=== PATIENT | female | born 1960 | race Caucasian/White ===

== ENCOUNTER 2017-02-21 17:01 | Inpatient (IN) | payer OTHER ==
[~2017-02-21] VITALS: Ht 152.4 cm; Wt 78.7 kg
[~2017-02-21 17:01] MED LIST: HYDROCHLOROTHIA25 MG PO; PANTOPRAZOLE SO40 MG PO; PEN-VEE K,VEET500 MG PO; PEPCID20 MG PO; PERCOCET 5/31 TABLET PO; PROMETHAZINE HC25 M1 PO; RANITIDINE HCL300 MG PO
[2017-02-21 17:53] LABS: HEMATOCRIT 46.1 % (36.0-46.0); MCH 31.7 PG (29.0-34.0); MCHC 34.3 G/DL (30.0-36.0); MCV 92.6 FL (83-99); MEAN PLAT.VOLUME 9.4 uM^3 (9.5-12.4); PLATELET COUNT 299 K/uL (156-360); RBC DIS.WIDTH-CV 12.6 % (11.8-14.6); RBC DIS.WIDTH-SD 42.9 % (39-53); RED BLOOD COUNT 4.98 M/uL (3.80-5.20); WHITE BLOOD COUNT 8.9 K/uL (4.1-10.2)
[2017-02-21 18:06] LABS: CHLORIDE 101 mEq/L (99-109); POTASSIUM 3.8 mEq/L (3.7-5.4); SODIUM 139 mEq/L (136-147)
[2017-02-21 18:07] LABS: GLUCOSE 93 mg/dL (70-99)
[2017-02-21 18:09] LABS: ANION GAP 11 MEQ/L (2-14)
[2017-02-21 18:11] LABS: GFR ESTIMATE (CALCULATED) > 59 mL/min/
[2017-02-21 18:18] LABS: TROP-I INTERPRETATION NEGATIVE; TROPONIN-I < 0.01 ng/mL (0.0-0.30); UREA NITROGEN (BUN) 26 mg/dL (9-23)
[2017-02-21] MEDS ORDERED: HYZAAR 50-121 TABLET PO (19:54)
[2017-02-21] MEDS ORDERED: ADVIL,NUPRIN,M200 MG PO (19:54)
[2017-02-21 22:00] VITALS: BP 139/82
[2017-02-21 22:02] LABS: HDL CHOLESTEROL 43 MG/DL (Desirable>=50); NON-HDL CHOLESTEROL 246 mg/dL (Desirable<160); TOTAL CHOLESTEROL 289 mg/dL (Desirable<200); TRIGLYCERIDES 536 MG/DL (Normal: <150)
[2017-02-22] VITALS: BP 141/72
[2017-02-22 03:44] VITALS: BP 101/59
[2017-02-22 07:29] VITALS: BP 113/71
[2017-02-22 08:40] LABS: HEMATOCRIT 41.7 % (36.0-46.0); MCH 31.4 PG (29.0-34.0); MCHC 33.3 G/DL (30.0-36.0); MCV 94.3 FL (83-99); MEAN PLAT.VOLUME 9.7 uM^3 (9.5-12.4); PLATELET COUNT 256 K/uL (156-360); RBC DIS.WIDTH-CV 12.9 % (11.8-14.6); RBC DIS.WIDTH-SD 44.5 % (39-53); RED BLOOD COUNT 4.42 M/uL (3.80-5.20); WHITE BLOOD COUNT 7.4 K/uL (4.1-10.2)
[2017-02-22 11:44] VITALS: BP 110/56
[2017-02-22 12:47] LABS: POINT-OF-CARE METER ID UU14174225
[2017-02-22 15:26] VITALS: BP 102/62
[2017-02-22 17:08] LABS: POINT-OF-CARE METER ID UU14188625
[2017-02-22 19:51] VITALS: BP 118/69
[2017-02-23 00:11] VITALS: BP 125/69
[2017-02-23 05:45] VITALS: BP 105/65
[2017-02-23 07:18] LABS: EOSINOPHIL COUNT 0.2 K/uL (0-0.3); HEMATOCRIT 39.9 % (36.0-46.0); IMMATURE GRANULOCYTE (%) 0.7 % (0.0-0.7); IMMATURE GRANULOCYTE COUNT 0.1 K/uL; LYMPHOCYTE COUNT 2.6 K/uL (1.0-2.8); MCH 31.3 PG (29.0-34.0); MCHC 33.1 G/DL (30.0-36.0); MCV 94.5 FL (83-99); MEAN PLAT.VOLUME 9.5 uM^3 (9.5-12.4); MONOCYTE COUNT 0.5 K/uL (0-0.8); NEUTROPHIL (%) 54.2 % (45-76); PLATELET COUNT 229 K/uL (156-360); RBC DIS.WIDTH-CV 12.8 % (11.8-14.6); RBC DIS.WIDTH-SD 44.2 % (39-53); RED BLOOD COUNT 4.22 M/uL (3.80-5.20); WHITE BLOOD COUNT 7.4 K/uL (4.1-10.2)
[2017-02-23 07:40] LABS: ANION GAP 7 MEQ/L (2-14); CHLORIDE 99 MEQ/L (99-109); GFR ESTIMATE (CALCULATED) > 59 mL/min/; GLUCOSE 91 mg/dL (70-99); SAMPLE HEMOLYSIS CHECK 1; SAMPLE ICTERIC CHECK 0; SAMPLE LIPEMIA CHECK 0; SODIUM 134 MEQ/L (136-147); UREA NITROGEN (BUN) 25 mg/dL (9-23)
[2017-02-23 07:46] LABS: POTASSIUM 4.6 MEQ/L (3.7-5.4)
[2017-02-23 08:28] VITALS: BP 129/75
[2017-02-23 11:48] VITALS: BP 124/66
[2017-02-23] MEDS ORDERED: PRAVASTATIN SOD80 MG PO (14:17)
[2017-02-23] MEDS ORDERED: NICOTINE PATCH1 EAC2 TD (14:17)
[2017-02-23] MEDS ORDERED: CLOPIDOGREL75 MG PO (14:17)
[2017-02-23] MEDS ORDERED: LOPRESSOR25 MG PO (14:17)
[2017-02-23] MEDS ORDERED: ASPIR-LOW81 MG PO (14:17)
== END 2017-02-23 15:52 | disposition home or self-care (01) | DRG 66 ==
LOC: EME 17:01 → EDOF 20:30 → 5SOUTH 21:56
PROVIDERS: Hospitalist; Internal Medicine
DX: I63.532 Cerebral infarction due to unspecified occlusion or stenosis of left posterior cerebral artery (principal); I67.2 Cerebral atherosclerosis; I65.23 Occlusion and stenosis of bilateral carotid arteries; H35.62 Retinal hemorrhage, left eye; I10 Essential (primary) hypertension; H53.453 Other localized visual field defect, bilateral; H35.042 Retinal micro-aneurysms, unspecified, left eye; E78.5 Hyperlipidemia, unspecified; K21.9 Gastro-esophageal reflux disease without esophagitis; R73.03 Prediabetes; K44.9 Diaphragmatic hernia without obstruction or gangrene; G89.29 Other chronic pain; L93.0 Discoid lupus erythematosus; E78.00 Pure hypercholesterolemia, unspecified; I73.00 Raynaud's syndrome without gangrene; E66.9 Obesity, unspecified; F17.210 Nicotine dependence, cigarettes, uncomplicated; Z91.128 Patient's intentional underdosing of medication regimen for other reason; Z68.33 Body mass index [BMI] 33.0-33.9, adult; Z86.73 Personal history of transient ischemic attack (TIA), and cerebral infarction without residual deficits; Z91.040 Latex allergy status; Z87.11 Personal history of peptic ulcer disease; Z82.3 Family history of stroke; Z80.0 Family history of malignant neoplasm of digestive organs; Z82.49 Family history of ischemic heart disease and other diseases of the circulatory system; R29.700 NIHSS score 0
CPT/HCPCS: 36415; 70450; 70544; 70549; 70551; 71020; 80048; 80053; 80061; 82607; 82746; 82948; 83036; 84439; 84443; 84484; 85025; 85027; 85651; 86140; 93005; 99281; 99285; J1200; J1815; J1885; J2060; J2270; J2405; J2765; J7030

== ENCOUNTER 2017-03-18 20:16 | Inpatient (IN) | payer OTHER ==
[~2017-03-18] VITALS: Ht 152.4 cm; Wt 76.6 kg
[~2017-03-18 20:16] MED LIST changes: +ADVIL,NUPRIN,M200 MG PO; +ASPIR-LOW81 MG PO; +CLOPIDOGREL75 MG PO; +HYZAAR 50-121 TABLET PO; +LOPRESSOR25 MG PO; +NICOTINE PATCH1 EAC2 TD; +PRAVASTATIN SOD80 MG PO
[2017-03-18 21:20] LABS: EOSINOPHIL (%) 2.7 % (0-5); EOSINOPHIL COUNT 0.2 K/uL (0-0.3); HEMATOCRIT 40.7 % (36.0-46.0); IMMATURE GRANULOCYTE (%) 0.3 % (0.0-0.7); INSTRUMENT ABS NEUTROPHIL CT 3.6 K/uL; LYMPHOCYTE COUNT 2.6 K/uL (1.0-2.8); MCH 31.4 PG (29.0-34.0); MCHC 34.4 G/DL (30.0-36.0); MCV 91.3 FL (83-99); MEAN PLAT.VOLUME 9.5 uM^3 (9.5-12.4); MONOCYTE (%) 8.4 % (3-12); MONOCYTE COUNT 0.6 K/uL (0-0.8); NEUTROPHIL (%) 51.5 % (45-76); NEUTROPHIL COUNT 3.6 K/uL (1.8-6.4); PLATELET COUNT 264 K/uL (156-360); RBC DIS.WIDTH-SD 40.3 % (39-53); RED BLOOD COUNT 4.46 M/uL (3.80-5.20)
[2017-03-18 21:31] LABS: CHLORIDE 103 mEq/L (99-109); POTASSIUM 3.6 mEq/L (3.7-5.4); SODIUM 139 mEq/L (136-147)
[2017-03-18 21:32] LABS: PTT 29.6 (25-32)
[2017-03-18 21:33] LABS: GLUCOSE 91 mg/dL (70-99)
[2017-03-18 21:34] LABS: ANION GAP 11 MEQ/L (2-14)
[2017-03-18 21:37] LABS: GFR ESTIMATE (CALCULATED) > 59 mL/min/
[2017-03-18 21:38] LABS: UREA NITROGEN (BUN) 18 mg/dL (9-23)
[2017-03-18 21:41] LABS: TROP-I INTERPRETATION NEGATIVE; TROPONIN-I < 0.01 ng/mL (0.0-0.30)
[2017-03-18 21:56] LABS: HDL CHOLESTEROL 40 MG/DL (Desirable>=50); LDL CHOLESTEROL 88 mg/dL (Desirable<100); NON-HDL CHOLESTEROL 138 mg/dL (Desirable<160); TOTAL CHOLESTEROL 178 mg/dL (Desirable<200); TRIGLYCERIDES 250 MG/DL (Normal: <150)
[2017-03-18] MEDS ORDERED: PLAVIX75 MG PO (23:58)
[2017-03-18] MEDS ORDERED: NICOTINE PATCH1 EAC1 TD (23:58)
[2017-03-18] MEDS ORDERED: LO-DOSE ASPIRIN81 M1 PO (23:59)
[2017-03-19] MEDS ORDERED: LEVO-T50 MCG PO
[2017-03-19] MEDS ORDERED: ATORVASTATIN CA20 MG PO
[2017-03-19] MEDS ORDERED: CYANOCOBAL1000 MCG/2 IM (00:01)
[2017-03-19 04:00] VITALS: BP 135/78
[2017-03-19 06:46] LABS: Estimated Average Glucose 126 mg/dL (70-123)
[2017-03-19 08:06] VITALS: BP 131/68
[2017-03-19 11:05] VITALS: BP 107/53
[2017-03-19 15:35] VITALS: BP 119/65
[2017-03-19 19:33] VITALS: BP 132/61
[2017-03-19 23:01] VITALS: BP 118/67
[2017-03-20 03:09] VITALS: BP 120/65
[2017-03-20 08:19] VITALS: BP 118/67
[2017-03-20 09:00] LABS: HEMATOCRIT 41.8 % (36.0-46.0); MCH 31.2 PG (29.0-34.0); MCHC 33.7 G/DL (30.0-36.0); MCV 92.5 FL (83-99); MEAN PLAT.VOLUME 9.7 uM^3 (9.5-12.4); PLATELET COUNT 226 K/uL (156-360); RBC DIS.WIDTH-CV 12.2 % (11.8-14.6); RBC DIS.WIDTH-SD 41.6 % (39-53); RED BLOOD COUNT 4.52 M/uL (3.80-5.20)
[2017-03-20 09:24] LABS: ANION GAP 10 MEQ/L (2-14); CHLORIDE 103 MEQ/L (99-109); GFR ESTIMATE (CALCULATED) > 59 mL/min/; GLUCOSE 85 mg/dL (70-99); POTASSIUM 4.2 MEQ/L (3.7-5.4); SAMPLE HEMOLYSIS CHECK 1; SAMPLE ICTERIC CHECK 0; SAMPLE LIPEMIA CHECK 0; SODIUM 140 MEQ/L (136-147); UREA NITROGEN (BUN) 16 mg/dL (9-23)
[2017-03-20 11:48] VITALS: BP 116/69
[2017-03-20 16:44] VITALS: BP 130/76
[2017-03-20 19:58] VITALS: BP 128/79
[2017-03-20 21:47] LABS: PROTHROMBIN TIME 10.1 (9.2-11.2); PTT 30.5 (25-32)
[2017-03-20 23:29] VITALS: BP 119/58
[2017-03-21 03:46] VITALS: BP 107/67
[2017-03-21 07:59] VITALS: BP 107/61
[2017-03-21 11:57] VITALS: BP 110/60
== END 2017-03-21 16:19 | disposition short-term general hospital (02) | DRG 65 ==
LOC: EME 20:16 → 5SOUTH 03-19 02:29 → EDOF 03-19 02:29 → 5SOUTH 03-19 03:53
PROVIDERS: Emergency Medicine; Hospitalist; Internal Medicine; Psychiatry & Neurology Neurology
DX: I63.232 Cerebral infarction due to unspecified occlusion or stenosis of left carotid arteries (principal); I69.354 Hemiplegia and hemiparesis following cerebral infarction affecting left non-dominant side; M32.9 Systemic lupus erythematosus, unspecified; I65.21 Occlusion and stenosis of right carotid artery; R51 Headache; H53.9 Unspecified visual disturbance; E78.00 Pure hypercholesterolemia, unspecified; E11.9 Type 2 diabetes mellitus without complications; R42 Dizziness and giddiness; R11.2 Nausea with vomiting, unspecified; R07.89 Other chest pain; Z87.891 Personal history of nicotine dependence; I10 Essential (primary) hypertension; J98.11 Atelectasis; F41.9 Anxiety disorder, unspecified
CPT/HCPCS: 70450; 70496; 70498; 71010; 71275; 80048; 80061; 83036; 84484; 85025; 85027; 85610; 85730; 93005; 99281; 99285; J1200; J1650; J2060; J2765